=== PATIENT | male | born 1955 | race African-American/Black ===

== ENCOUNTER 2016-09-09 02:03 | Inpatient (IN) | payer BC, MEDICARE ==
--- NOTE | ~2016-09-09 | CR63 ---
[facility] A Service of [facility] RADIOLOGY TEXT RESULTS PATIENT: KURT ALMENDAREZ LOCATION: [facility] [id number] : [birth year] UNIT #: [id number] AGE: [address]: Fallon Cardenas MD SEX: M ORDER DR: [id number] [facility] [address] [place], [place] [address] [id number] MR#: [id number] #: [id number] NAME: KURT ALMENDAREZ : 1955 SEX: M STUDY DATE/TIME: 09/10/2016 8:33 UNIT: [facility] ROOM: [facility] STUDY DESCRIPTION: CR Chest 2 View Attending Physician: Fallon Cardenas M.D. Ordering Physician: Isabel Wells M.D. Primary Care Physician: Primary Care Physician No MEDICAL IMAGING REPORT This report is preliminary unless electronic signature is present EXAM PA and lateral chest 09/10/2016 HISTORY Wheezing, shortness of breath for 5 days. COMPARISON 09/09/2016. FINDINGS PA and lateral views of the chest are obtained. Cardiac size in the patient is stable. The exam again shows some increased density in the pleura at the left base. This likely represents fluid within the fissure. Lungs otherwise are clear. CONCLUSION Continued evidence of left pleural fluid. This appears at least partially loculated within the fissure. Chest is unchanged from the prior study of 09/09. Dictated by... Hari Jauregui M.D. THIS IS AN ELECTRONICALLY VERIFIED REPORT Hari Jauregui M.D. at 09/11/2016 7:27 AM EDGAR/manohar TD: 09/10/2016 13:15 JOB #: [id number] MEDICAL IMAGING REPORT Page 1 of 1 COPY
--- NOTE | ~2016-09-09 | HP ---
Unit #: [id number] #: [id number] Patient: KURT ALMENDAREZ [id number] [address] [place], [place] [address] [id number] I MR#: [id number] NAME: KURT ALMENDAREZ ROOM: [id number] Age: 61 Sex: M Admission Date: 09/09/2016 : 1955 Attending Physician: Fallon Cardenas M.D. Primary Care Physician: No Primary Care Physician HISTORY AND PHYSICAL CHIEF COMPLAINT Cough and shortness of breath x4 days. HISTORY OF PRESENT ILLNESS The patient is a pleasant 61-year-old -[place] male with hypertension, ESRD on dialysis, HIV, who basically has been having some cough and shortness of breath for the past four days. He was told he had some fluid in his lungs at dialysis. He presented for evaluation in the emergency room and diagnosed with pneumonia. He is currently being treated for community-acquired pneumonia. REVIEW OF SYSTEMS Complete ten point review of systems has been done and pertinent positives noted. PAST MEDICAL HISTORY As stated above: 1. Hypertension. 2. HIV. 3. ESRD with dialysis. PAST SURGICAL HISTORY AV fistula placement. MEDICATIONS Medications include: 1. Abacavir sulfate 300 mg p.o. twice daily. 2. Tenormin 12.5 mg p.o. daily. 3. Lipitor 10 mg p.o. daily. 4. Capsaicin topically. 5. Cholecalciferol D 2000 units p.o. daily. 6. Sensipar 30 mg p.o. daily. 7. Efavirenz 600 mg at bedtime on empty stomach. 8. Hydroxyzine 10 mg p.o. at bedtime. 9. Lamivudine 50 mg p.o. daily. 10. Lidocaine/prilocaine cream applied topically to affected area. 11. Claritin 10 mg p.o. every other day. 12. Multivitamin topically p.o. daily. 13. Renvela 800 mg p.o. three times a day with meals. 14. Sodium bicarb 1300 mg p.o. twice daily. ALLERGIES No known drug allergies. Unit #: [id number] #: [id number] Patient: KURT ALMENDAREZ FAMILY HISTORY Significant for mother and brother with coronary artery disease and mom, grandmother and brother also having end stage renal disease. SOCIAL HISTORY The patient is retired from the [employer]. Denies any alcohol use. Quit smoking about 15 years ago. PHYSICAL EXAMINATION GENERAL APPEARANCE: He was comfortable, not in distress. VITAL SIGNS: Blood pressure was elevated today at 176/84, pulse 96, respiratory rate 18, temperature 98.1, saturating 99% on room air. CHEST: Reduced breath sounds in the lung bases posteriorly. CARDIOVASCULAR SYSTEM: First and second heart sounds only. ABDOMEN: Full. Moved with respiration. Soft, nontender, nondistended. EXTREMITIES: Bilateral lower extremity edema. SKIN: Warm and dry with no rashes. LYMPHATIC SYSTEM: No peripheral lymphadenopathy that I could appreciate. DIAGNOSTIC STUDIES IMAGING: Chest x-ray showed left base infiltrate/atelectasis. LABORATORY: He had chemistries which showed glucose of 113, BUN and creatinine 37 and 8.0, sodium and potassium 137 and 3.5, chloride and bicarbonate 100 and then 27 respectively. She had a CBC - WBC 7.5, hemoglobin and hematocrit 10.6 and 33.0, with a platelet count of 262. CARDIOVASCULAR: EKG - normal sinus rhythm, possible left atrial enlargement. ASSESSMENT AND PLAN 1. Shortness of breath, community-acquired pneumonia versus chronic obstructive pulmonary disease: He was started on doxycycline 100 mg p.o. in the ER, currently on Rocephin and Zithromax per protocol. He will get a dose of steroids, Solu-Medrol, 125 mg x1. Will put him on Duo-Nebs, get a CBC and CMP in the morning. 2. End stage renal disease: Consult Dr. Don. 3. HIV: Continue HIV medications. 4. DVT prophylaxis: Put him on SCDs while he is in bed. 5. GI prophylaxis: Put him on Protonix 40 mg p.o. daily. 6. Blood pressure is elevated at this time: Will need to put him on some hydralazine 10 mg IV q.6 p.r.n. Would also add hydralazine 25 mg p.o. t.i.d. to antihypertensive regimen. Dictated by Olimpia Infante TD: 09/09/2016 12:08 JOB #: [id number] Unit #: [id number] #: [id number] Patient: ERICKSON,KURT HISTORY AND PHYSICAL Page 1 of 1 X Isabel Wells MD HISTORY AND PHYSICAL
--- NOTE | ~2016-09-09 | CT57 ---
[facility] A Service of [facility] RADIOLOGY TEXT RESULTS PATIENT: KURT ALMENDAREZ LOCATION: [place] [address] : [birth year] UNIT #: [id number] AGE: [address]: Brandon Nagel MD SEX: M ORDER DR: [id number] [facility] [address] [place], [place] [address] [id number] I MR#: [id number] Acc #: [id number] NAME: KURT ALMENDAREZ : 1955 SEX: M STUDY DATE/TIME: 09/10/2016 17:46 UNIT: [facility] ROOM: [facility] STUDY DESCRIPTION: CT Chest Wo Cont Attending Physician: Fallon Cardenas M.D. Ordering Physician: Physician Non-Staff Primary Care Physician: No Primary Care Physician MEDICAL IMAGING REPORT This report is preliminary unless electronic signature is present EXAM CT of the chest without contrast INDICATIONS Shortness of breath and wheezing since September 05. History of dialysis. TECHNIQUE This CT exam was performed with one or more of the following radiation dose reduction techniques: automatic exposure control, adjustment of mA and/or kV according to patient size, and iterative reconstruction. CT of the chest was performed without contrast. Coronal and sagittal reformatted images were obtained. COMPARISON STUDIES No comparisons are available. FINDINGS There is bilateral interstitial thickening and bilateral airspace and ground-glass opacities. Small bilateral pleural effusions right greater than left. Overall findings are most suggestive of pulmonary edema. Trace pericardial fluid or thickening. Tiny thyroid nodule on the right. No suspicious lymphadenopathy. Gynecomastia. Limited imaging of the upper abdomen demonstrates changes of polycystic kidney disease. Cholelithiasis. Bone windows are unremarkable. IMPRESSION 1. Small bilateral pleural effusions with bilateral interstitial opacities in bilateral ground-glass airspace opacities most suggestive of pulmonary edema. 2. Findings consistent with polycystic kidney disease [facility] A Service [facility] RADIOLOGY TEXT RESULTS PATIENT: KURT ALMENDAREZ LOCATION: [facility]12-28 : [birth year] UNIT #: [id number] AGE: [address]: Brandon Nagel MD SEX: M ORDER DR: Dictated by... Angel Echavarria M.D. THIS IS AN ELECTRONICALLY VERIFIED REPORT Angel Echavarria M.D. at 09/12/2016 7:25 AM MARYLOU/pratima TD: 09/10/2016 23:50 JOB #: [id number] MEDICAL IMAGING REPORT Page 1 of 1 COPY
--- NOTE | ~2016-09-09 | CO ---
Unit #: [id number] #: [id number] Patient: KURT ALMENDAREZ [id number] [place] [address] [place], [place] [address] [id number] I MR#: [id number] NAME: KURT ALMENDAREZ ROOM: [facility] Age: 61 Sex: M Admission Date: 09/09/2016 : 1955 Attending Physician: Brandon Nagel M.D. Primary Care Physician: Primary Care Physician No Consultation Date: 09/10/2016 CONSULTATION REPORT HISTORY OF PRESENT ILLNESS Mr. Almendarez is a 61-year-old gentleman we were asked to see for management of his end-stage renal disease. He typically gets his care at the [facility]. The patient reports he was in his usual state of health until approximately Saturday when he came to dialysis and was found to have wheezing at the time of his initial assessment. By the end of dialysis treatment, his wheezing had resolved, and he felt well. He reports on Saturday he again presented with and had similar findings, which again resolved by the end of dialysis. On Saturday night, he began to experience significant orthopnea without fevers, chills, sputum production, etc. He did have a very light cough. With his increasing shortness of breath, he presented to the emergency room for further evaluation and has now been admitted for pneumonia. Currently, he reports that he feels much better. He is not currently short of breath, but he is sitting up. PAST MEDICAL HISTORY Significant for endstage renal disease, which he attributes to hereditary causes and possibly HIV medications for which he has been undergoing dialysis treatment for approximately 3 years. He also has a history of HIV, hypertension, and hypercholesterolemia. PAST SURGICAL HISTORY Significant for AV fistula replacements and several tunneled catheter placements. MEDICATIONS At the time of admission include abacavir, Tenormin, Lipitor, capsaicin, cholecalciferol, Sensipar, efavirenz, hydroxyzine, lamivudine, lidocaine, Claritin, a multivitamin, Renvela 800 mg and sodium bicarbonate. ALLERGIES None known. REVIEW OF SYSTEMS A 10-point review of systems was negative except for that described as above. Specifically, he denies chest pain, palpitations, history of asthma or COPD. PHYSICAL EXAMINATION VITAL SIGNS: He is afebrile with a temperature of 98.2, blood pressure 166/93, pulse of 100, respiratory rate of 18, O2 saturation is 94% on nasal cannula. HEENT: Head is normocephalic. Pupils are equal and reactive. Sclerae Unit #: [id number] #: [id number] Patient: KURT ALMENDAREZ anicteric. Throat clear. NECK: Supple without adenopathy. There was no jugular venous distention. LUNGS: Clear to auscultation without rales, rhonchi or wheezing. HEART: Had a regular rate with normal S1 and S2. No murmurs or gallops were noted. ABDOMEN: Soft and nontender. No masses or organomegaly were noted. No tenderness was elicited. GENITAL/RECTAL: Deferred. EXTREMITIES: Showed no lower extremity edema and no presacral edema. He does have a dialysis fistula in his right upper arm, which appears well used, but stable condition. DIAGNOSTIC STUDIES IMAGING STUDIES: His chest x-ray was noted to show some degree of cardiomegaly with a left base infiltrate. LABORATORY RESULTS: Chemistries were notable for an elevated creatinine of 9.6 with a BUN of 63, but had a normal potassium at 4.2 and a bicarb at 23. His albumin was 3.3. His hemoglobin was 9.7 with a white count of 9.3 and a platelet count of 262. Cultures are pending at this point in time. IMPRESSION 1. Pneumonia. He is currently on treatment with Rocephin and Zithromax. His symptoms appeared to be abating and he looks well at this time. Continue treatment per primary care. 2. Endstage renal disease. The patient does not appear to have peripheral edema and I am unsure of the contribution of potential excess fluid on his chest x-ray. We will proceed with dialysis today and pull him to his usual dry weight and reassess afterwards. 3. Hypertension. His blood pressure is up and ideally controlled during this hospital stay; however, recent blood pressure changes by his primary care physician are noted. 4. History of HIV and the patient reports that HIV has been well controlled and he has not had significant complications in terms of immunosuppression or infections. Dictated by... Raul David M.D. KATY/lexus TD: 09/11/2016 08:00 JOB #: [id number] CONSULTATION REPORT Page 1 of 1 X Raul David Jr, MD CONSULTATION REPORT
--- NOTE | ~2016-09-09 | DS ---
Unit #: [id number] #: [id number] Patient: KURT ALMENDAREZ [id number] [place] [address] [facility]. [place], [place] [address] [id number] I MR#: [id number] NAME: KURT ALMENDAREZ ROOM: [facility] Age: 61 Sex: M Admission Date: 09/09/2016 : 1955 Discharge Date: 09/12/2016 Attending Physician: Brandon Nagel M.D. Primary Care Physician: No Primary Care Physician DISCHARGE SUMMARY REASON FOR ADMISSION Dyspnea. HISTORY OF PRESENT ILLNESS A 61-year-old -Malag[place] male, very pleasant, with a prior history of hypertension, end-stage renal disease on hemodialysis, HIV who developed acute onset of shortness of breath as well as dyspnea. He was previously told that he had increased fluid and presented to his dialysis center. During dialysis, he states that he had several liters of fluid which were removed. He went home. Unfortunately, he did not show any improvement. He presented to [facility] ER for further evaluation. Initial chest x-ray findings were consistent with fluid overload versus pneumonia. He was subsequently admitted and treated as community-acquired pneumonia. In regard to his prior history of end-stage renal disease, consultation was placed to [facility]. The patient did undergo routine dialysis while he was here. In consideration of initial abnormal chest x-ray and findings consistent with edema versus acute infiltrate, patient underwent CT chest without contrast which did show small bilateral effusions with bilateral interstitial opacities consistent with pulmonary edema. There was also polycystic kidney disease which was noted but no acute infiltrate was noted. His white count is now currently at 10.2, hemoglobin 9.9. BMP shows a creatinine level of 8.6 and GFR at 7. His cardiac enzymes have been cycled, otherwise negative. Blood cultures have been negative, as mentioned above. At this point in time, patient appears stable for discharge. He will have hemodialysis later this afternoon. Also noted, patient did undergo a 2D echocardiogram this hospital admission to ascertain EF as well as cardiac function. Patient's ejection fraction was noted to be 55%. Overall, left ventricular function was deemed normal. At this point in time, patient is clinically stable for discharge. He will follow with his PCP in 7-10 days. He will follow with [place] Unit #: [id number] #: [id number] Patient: KURT ALMENDAREZ Nephrology Services at time of discharge as well. FINAL DISCHARGE DIAGNOSES 1. Acute hypoxic respiratory failure seen on admission, now resolved. 2. Fluid overload/pulmonary edema. 3. End-stage renal disease on hemodialysis. 4. Anemia, likely of chronic disease, baseline between 9-10. 5. Human immunodeficiency virus. 6. Chronic obstructive pulmonary disease. 7. Remote history of tobacco abuse. DISCHARGE MEDICATIONS 1. Sodium bicarbonate 1300 mg p.o. b.i.d. 2. Claritin 10 mg p.o. every other day. 3. Lidocaine/Emla topical daily. 4. Ziagen 300 mg p.o. b.i.d. 5. Sustiva 600 mg p.o. nightly. 6. Atarax 10 mg p.o. nightly p.r.n. anxiety. 7. Tenormin 12.5 mg p.o. daily. 8. Lipitor 10 mg p.o. nightly. 9. Sensipar 30 mg p.o. daily. 10. Renvela 800 mg p.o. t.i.d. with meals. 11. Vitamin D 2000 units p.o. daily. 12. Lamivudine 50 mg p.o. daily. 13. Multivitamin daily. 14. Nephrocaps daily. 15. Hydralazine 50 mg p.o. b.i.d. DISCHARGE CONDITION Stable. DISCHARGE DISPOSITION Home. Dictated by... Olimpia Yu/madhuri TD: 09/12/2016 09:42 JOB #: [id number] DISCHARGE SUMMARY Page 1 of 1 X Brandon Nagel MD X DISCHARGE SUMMARY
--- NOTE | ~2016-09-09 | EKG ---
PATIENT: KURT ALMENDAREZ UNIT #: [id number] Ventricular Rate: 95 BPM Atrial Rate: 95 BPM P-R Interval: 136 ms QRS Duration: 74 ms Q-T Interval: 368 ms QTC Calculation(Bezet): 462 ms P [place]: 40 degrees Calculated R [place]: 21 degrees Calculated T [place]: 24 degrees Diagnosis Line: Normal sinus rhythm Diagnosis Line: Possible Left atrial enlargement Diagnosis Line: Left ventricular hypertrophy Diagnosis Line: Abnormal ECG Diagnosis Line: No previous ECGs available Diagnosis Line: Confirmed by ANAND PETIT MD ([id number]) on Diagnosis Line: 09/10/2016 8:36:44 AM INTERPRETING MD: DAMASO GALLARDO
--- NOTE | ~2016-09-09 | CR63 ---
[facility] A Service of [facility] RADIOLOGY TEXT RESULTS PATIENT: KURT ALMENDAREZ LOCATION: [facility] 559-01 : [birth year] UNIT #: [id number] AGE: [address]: Fallon Cardenas MD SEX: M ORDER DR: [id number] [facility] [address] [place], [place] [address] [id number] I MR#: [id number] Acc #: [id number] NAME: KURT AMLENDAREZ : 1955 SEX: M STUDY DATE/TIME: 09/09/2016 03:08 UNIT: [facility] ROOM: [facility] STUDY DESCRIPTION: CR Chest 2 View Attending Physician: Fallon Cardensa M.D. Ordering Physician: Adrian Martin M.D. Primary Care Physician: Primary Care Physician No MEDICAL IMAGING REPORT This report is preliminary unless electronic signature is present EXAM Chest x-ray, 09/09 at 03:08 INDICATIONS Shortness of air, wheezing and weakness that started today. History of HIV. FINDINGS PA and lateral views of the chest were obtained. No comparisons. The heart is enlarged. There is some mild infiltrate or atelectasis at the left base and there is some left pleural thickening, which could reflect some loculated pleural fluid. The right lung is clear. There is no pneumothorax. There is a vascular stent in the left upper extremity. IMPRESSION Cardiomegaly with some mild left base infiltrate or atelectasis. There is also some pleural thickening at the left base, which could reflect loculated pleural fluid but is nonspecific in the absence of comparisons. Dictated by... Sancho Lundberg Jr., M.D. THIS IS AN ELECTRONICALLY VERIFIED REPORT Sancho Lundberg Jr., M.D. at 09/09/2016 9:24 PM DOM/naz TD: 09/09/2016 20:47 JOB #: [id number] MEDICAL IMAGING REPORT Page 1 of 1 COPY
[2016-09-09 03:10] LABS: BASOPHIL# 0.1 X10e3 (0-0.3); BASOPHIL% 0.9 % (0-2.5); DIFF IND NO; EOSINOPHIL# 0.2 X10e3 (0-0.7); EOSINOPHIL% 2.1 % (0.0-7.0); HEMOGLOBIN 10.6 gm/dL (13.0-16.0); LYMPHOCYTE# 1.8 X10e3 (1.0-3.5); LYMPHOCYTE% 24.1 % (17.0-45.0); MEAN CELL VOLUME 102.4 FL (83-96); MEAN CORPUSCULAR HEMOGLOBIN 32.9 PG (28-34); MEAN CORPUSCULAR HGB CONC 32.1 g/dL (30-36); MEAN PLATELET VOLUME 8.1 FL (6.5-11.5); MONOCYTE# 0.9 X10e3 (0-1.0); MONOCYTE% 12.3 % (3.0-12.0); NEUTROPHIL# 4.5 X10e3 (1.5-7.1); NEUTROPHIL% 60.6 % (40-75); PLATELET COUNT 262 X10e3 (140-420); RED BLOOD COUNT 3.22 X10e (3.90-5.60); RED CELL DISTRIBUTION WIDTH 14.2 % (11.0-15.5); WHITE BLOOD COUNT 7.5 X10e3 (4.0-10.5)
[2016-09-09 03:11] LABS: POC - CKMB <1.0 ng/mL (0.0-7.9); POC - TROPONIN <0.05 ng/mL (<=0.05)
[2016-09-09 03:37] LABS: ALBUMIN SERUM 3.3 g/dL (3.5-5.0); BILIRUBIN, DIRECT 0.1 mg/dL (0.0-0.2); BILIRUBIN,INDIRECT 0.2 mg/dL (0.0-0.9); BILIRUBIN,TOTAL 0.3 mg/dL (0.2-2.0); BUN/CREATININE RATIO 4.62; CALCIUM SERUM 8.1 mg/dL (8.4-10.2); GLOM FILT RATE Estimated 7.6 mL/min (>60); POTASSIUM 3.5 mmol/L (3.5-5.1); PROTEIN TOTAL SERUM 7.9 g/dL (6.0-8.3)
[2016-09-09] MEDS ORDERED: PATIENT'S PHARMACY (09:05)
[2016-09-09] MEDS ORDERED: ZIAGEN300 M1 PO (09:06)
[2016-09-09] MEDS ORDERED: ATENOLOL PO (09:06)
[2016-09-09] MEDS ORDERED: ATORVASTATIN CA10 MG PO (09:07)
[2016-09-09] MEDS ORDERED: ARTHRITIS PAI42.5 GM TOP (09:09)
[2016-09-09] MEDS ORDERED: D-20002000 UNIT PO (09:10)
[2016-09-09] MEDS ORDERED: SENSIPAR30 MG PO (09:10)
[2016-09-09] MEDS ORDERED: HYDROXYZINE HCL10 MG PO (09:11)
[2016-09-09] MEDS ORDERED: SUSTIVA PO (09:11)
[2016-09-09] MEDS ORDERED: LAMIVUDINE PO (09:13)
[2016-09-09] MEDS ORDERED: LIDOCAINE-PRILO30 G1 TOP (09:14)
[2016-09-09] MEDS ORDERED: CLARITIN10 M3 PO (09:15)
[2016-09-09] MEDS ORDERED: MULTIVIT PO (09:20)
[2016-09-09] MEDS ORDERED: DIALYSIS PO (09:20)
[2016-09-09] MEDS ORDERED: [UNRECOGNIZED DRUG - OTHER] PO (09:20)
[2016-09-09] MEDS ORDERED: RENVELA800 MG PO (09:21)
[2016-09-09] MEDS ORDERED: SOD BICARBONATE PO (09:22)
[2016-09-09] MEDS ORDERED: JOCK ITCH15 G1 TOP (09:22)
[2016-09-10 06:24] LABS: BASOPHIL% 0.3 % (0-2.5); HEMATOCRIT 29.1 % (38.0-50.0); HEMOGLOBIN 9.7 gm/dL (13.0-16.0); LYMPHOCYTE# 0.7 X10e3 (1.0-3.5); LYMPHOCYTE% 7.6 % (17.0-45.0); MEAN CELL VOLUME 100.7 FL (83-96); MEAN CORPUSCULAR HEMOGLOBIN 33.5 PG (28-34); MEAN CORPUSCULAR HGB CONC 33.3 g/dL (30-36); MONOCYTE# 0.4 X10e3 (0-1.0); MONOCYTE% 4.2 % (3.0-12.0); NEUTROPHIL# 8.1 X10e3 (1.5-7.1); NEUTROPHIL% 87.9 % (40-75); PLATELET COUNT 262 X10e3 (140-420); RED BLOOD COUNT 2.89 X10e (3.90-5.60); RED CELL DISTRIBUTION WIDTH 14.3 % (11.0-15.5); WHITE BLOOD COUNT 9.3 X10e3 (4.0-10.5)
[2016-09-10 06:42] LABS: DIFF IND NO
[2016-09-10 06:47] LABS: BUN/CREATININE RATIO 6.56; CALCIUM SERUM 8.4 mg/dL (8.4-10.2); CREATININE SERUM 9.6 mg/dL (0.6-1.4); GLOM FILT RATE Estimated 6.1 mL/min (>60); POTASSIUM 4.2 mmol/L (3.5-5.1)
[2016-09-11 07:01] LABS: HEMATOCRIT 28.4 % (38.0-50.0); HEMOGLOBIN 9.2 gm/dL (13.0-16.0); MEAN CELL VOLUME 102.2 FL (83-96); MEAN CORPUSCULAR HGB CONC 32.3 g/dL (30-36); MEAN PLATELET VOLUME 8.4 FL (6.5-11.5); RED BLOOD COUNT 2.78 X10e (3.90-5.60); RED CELL DISTRIBUTION WIDTH 14.4 % (11.0-15.5)
[2016-09-11 07:41] LABS: BUN/CREATININE RATIO 6.03; CALCIUM SERUM 8.2 mg/dL (8.4-10.2); GLOM FILT RATE Estimated 10.2 mL/min (>60); MAGNESIUM 2.1 mg/dL (1.6-3.0); POTASSIUM 3.9 mmol/L (3.5-5.1)
[2016-09-11 07:46] LABS: CREATININE SERUM 6.3 mg/dL (0.6-1.4)
[2016-09-12 07:52] LABS: HEMATOCRIT 30.3 % (38.0-50.0); HEMOGLOBIN 9.9 gm/dL (13.0-16.0); MEAN CELL VOLUME 102.1 FL (83-96); MEAN CORPUSCULAR HEMOGLOBIN 33.2 PG (28-34); MEAN CORPUSCULAR HGB CONC 32.6 g/dL (30-36); MEAN PLATELET VOLUME 8.5 FL (6.5-11.5); RED BLOOD COUNT 2.97 X10e (3.90-5.60); RED CELL DISTRIBUTION WIDTH 14.5 % (11.0-15.5); WHITE BLOOD COUNT 10.2 X10e3 (4.0-10.5)
[2016-09-12 09:11] LABS: BUN/CREATININE RATIO 7.67; CALCIUM SERUM 7.8 mg/dL (8.4-10.2); CREATININE SERUM 8.6 mg/dL (0.6-1.4)
[2016-09-12] MEDS ORDERED: HYDRALAZINE HCL50 MG PO (15:38)
[2016-09-12] MEDS ORDERED: NEPHROCAPS QT1 EACH PO (15:39)
[2016-09-12] MEDS ORDERED: ALBUTEROL MININEB INH (15:44)
[2016-09-14 01:02] LABS: HA AB IGM (HEPPAN) Nonreactive (()); HB CORE AB IGM (HEPPAN) Nonreactive (Nonreactive); HB S AG (HEPPAN) Nonreactive (Nonreactive); HEP C AB (HEPPAN) Nonreactive (Nonreactive); HEP C AB SIGNAL TO CUTOFF 0.05 ratio (<1.00)
== END 2016-09-12 19:00 | disposition home or self-care (01) | DRG 640 ==
LOC: CED 02:03 → CEDOF 05:31 → C5B 05:31 → CEDOF 05:39 → CED 05:39 → C5B 16:40
PROVIDERS: Emergency Medicine; Family Medicine; Internal Medicine Nephrology; Physician Assistant Medical
PROC: B246YZZ Ultrasonography of Right and Left Heart using Other Contrast (ICD-10-PCS; principal; 2016-09-11)
DX: E87.70 Fluid overload, unspecified (principal); J96.01 Acute respiratory failure with hypoxia; N18.6 End stage renal disease; I12.0 Hypertensive chronic kidney disease with stage 5 chronic kidney disease or end stage renal disease; Q61.3 Polycystic kidney, unspecified; J81.1 Chronic pulmonary edema; J44.1 Chronic obstructive pulmonary disease with (acute) exacerbation; Z21 Asymptomatic human immunodeficiency virus [HIV] infection status; Z82.49 Family history of ischemic heart disease and other diseases of the circulatory system; Z84.1 Family history of disorders of kidney and ureter; E78.00 Pure hypercholesterolemia, unspecified; D63.1 Anemia in chronic kidney disease
CPT/HCPCS: 36415; 71020; 71250; 80048; 80074; 80076; 82308; 82550; 82553; 82947; 83735; 83880; 84484; 85025; 85027; 86705; 86707; 87040; 87340; 87350; 93005; 93306; 94640; 94760; 96374; 99291; C9113; J0360; J0456; J0696; J2405; J2920; J2930

== ENCOUNTER 2016-10-15 22:01 | Inpatient (IN) | payer BC, MEDICARE ==
--- NOTE | ~2016-10-15 | DS ---
Unit #: [id number] #: [id number] Patient: KURT ALMENDAREZ [id number] [place], [place] [address] [id number] I MR#: [id number] NAME: KURT ALMENDAREZ ROOM: 313 Age: 61 Sex: M Admission Date: 10/16/2016 : 1955 Discharge Date: 10/18/2016 Attending Physician: Brandon Nagel M.D. Primary Care Physician: No Primary Care Physician DISCHARGE SUMMARY REASON FOR ADMISSION Dyspnea/abdominal pain. HISTORY OF PRESENT ILLNESS/HOSPITAL COURSE Please refer to H and P for complete details of initial part of hospital stay and/or evaluation. Initial chest x-ray raised possibility of mild CHF versus volume overload. The patient underwent CT abdomen and pelvis on 10/16/2016 secondary to aforementioned abdominal pain. There was question of infiltrates versus small bilateral pleural effusions. There were also noted to be large bilateral polycystic kidneys, which were nonobstructive. There was questionable left-sided pyeloureteral nephritis. Correlation was recommended. Cholelithiasis was also commented on, as well. Blood cultures ascertained this hospital admission were, otherwise, negative and unremarkable. The patient did undergo an ultrasound of his gallbladder on 10/16/2016 secondary to cholelithiasis, which was seen. It did show uncomplicated cholelithiasis with no acute process. In regard to his HIV status, as well as antibiotic management, ID service was consulted. They continued to follow the patient through his hospital course. Today, at time discharge the patient will be discharged home after ID has discontinued vancomycin, Zosyn and Bactrim. Pulmonary service, including Dr. Leung and associated, was also consulted secondary to dyspnea. No acute intervention was performed while here. In regard to the patient's history of endstage renal disease and being on dialysis, Dr. Walker and associates were consulted. He underwent routine dialysis. Repeat chest x-rays did show clearing, and the patient is clinically improved. At this point time the patient appears clinically stable for discharge. FINAL DISCHARGE DIAGNOSES 1. Dyspnea, likely secondary to volume overload, now resolved. 2. Bilateral pleural effusion versus infiltrate, now improved. 3. Human immunodeficiency virus positive. 4. Endstage renal disease. 5. Abdominal pain, now resolved. 6. Hyperlipidemia. 7. Hypertension. Unit #: [id number] #: [id number] Patient: KURT ALMENDAREZ FINAL DISCHARGE MEDICATIONS 1. Albuterol nebulizer solution q.6 p.r.n. 2. Sodium bicarbonate 1,300 mg p.o. b.i.d. 3. Claritin 10 mg p.o. daily. 4. Bentyl 10 mg p.o. q.6 p.r.n. 5. EMLA cream topical as directed. 6. Edurant 25 mg p.o. daily. 7. Norvir 100 mg p.o. daily. 8. Tivicay 50 mg p.o. daily. 9. Prezista 800 mg p.o. daily. 10. Tenormin 25 mg p.o. b.i.d. 11. Procrit 10,000 unit injection Saturday, , Saturday. 12. Lipitor 10 mg p.o. q.h.s. 13. Hydralazine 50 mg p.o. b.i.d. 14. Sensipar 30 mg p.o. daily. 15. Florastor b.i.d. 16. Multivitamin daily. 17. Motrin 400 mg p.o. q.6 p.r.n. 18. Renvela 800 mg p.o. t.i.d. with meals. 19. Vitamin D 2000 units p.o. daily. DISCHARGE CONDITION Stable. DISCHARGE DISPOSITION Home. Dictated by... Olimpia Yu/jhonatan TD: 10/19/2016 08:18 JOB #: [id number] DISCHARGE SUMMARY Page 1 of 1 X Brandon Nagel MD X DISCHARGE SUMMARY
--- NOTE | ~2016-10-15 | EKG ---
PATIENT: KURT ALMENDAREZ UNIT #: [id number] Ventricular Rate: 103 BPM Atrial Rate: 103 BPM P-R Interval: 134 ms QRS Duration: 78 ms Q-T Interval: 354 ms QTC Calculation(Bezet): 463 ms P [place]: 51 degrees Calculated R [place]: 34 degrees Calculated T [place]: 32 degrees Diagnosis Line: Sinus tachycardia Diagnosis Line: Possible Left atrial enlargement Diagnosis Line: Borderline ECG Diagnosis Line: When compared with ECG of 09-SEP-2016 03:21, Diagnosis Line: No significant change was found Diagnosis Line: Confirmed by DIONE ESTRADA MD ([id number]) on Diagnosis Line: 10/16/2016 10:38:46 PM INTERPRETING MD: MAXIME
--- NOTE | ~2016-10-15 | HP ---
Unit #: [id number] #: [id number] Patient: KURT ALMENDAREZ [id number] [address] [place], [place] [address] [id number] I MR#: [id number] NAME: KURT ALMENDAREZ ROOM: 96402 Age: 61 Sex: M Admission Date: 10/16/2016 : 1955 Attending Physician: Donna Lowery M.D. Primary Care Physician: No Primary Care Physician HISTORY AND PHYSICAL CHIEF COMPLAINT Dyspnea, abdominal pain. HISTORY This pleasant 61-year-old male with end stage renal failure secondary to polycystic kidney disease, hypertension, HIV positive, is admitted for dyspnea and abdominal pain. The patient was well until yesterday. His HIV medicines were changed due to severe muscle cramps. He took his first dose of his new medications yesterday and experienced diarrhea. Went to dialysis yesterday and did well. Took his new HIV medicines around 5:00 p.m. and then became extremely short of breath with wheezing. The shortness of breath was worse when supine and with exertion. No chest pain with the above. Has experienced a nonproductive cough for the past one to two days. Also is complaining of mid abdominal pain. He presented to this emergency department late last evening with a temperature of 99.4. In the course of his evaluation on chest x-ray, suspicious for mild CHF. A CT scan was performed of the abdomen showing small bilateral pleural effusions with bilateral infiltrates, which could be pneumonia versus congestive heart failure. Polycystic kidney disease was noted with stranding on the left suspicious for pyelonephritis. Gallstones were also noted. However, on examination the patient is tender in the right upper quadrant. Has no CVA tenderness on exam. Rarely makes urine. He had been admitted to this facility in August for fluid overload. So in our ER early this morning the patient was give Zosyn, vancomycin and tobramycin, given that he was recently admitted to a hospital. On examination he does have mild bronchospasm, currently is feeling better with oxygen applied and with albuterol mini-neb. PAST MEDICAL HISTORY 1. HIV positive for 21 years. The patient's HIV medicines were recently changed due to severe muscle cramps. He states that his viral load was undetectable in the past and does not know his CD4 count. He was followed by the [facility]. 2. Admission 09/09/2016 through 09/12/2016 which was thought to be community acquired pneumonia, but it was decided patient just had fluid overload. An echocardiogram showed an ejection fraction of 55%. 3. Hypertension. 4. Hyperlipidemia. 5. Polycystic kidney disease now with end stage renal failure on hemodialysis Saturday, Saturday, and Fridays followed by [facility]. Last dialysis was yesterday. Patient has a working right AV shunt. Unit #: [id number] #: [id number] Patient: KURT ALMENDAREZ ALLERGIES No known drug allergies. CURRENT HOME MEDICATIONS Albuterol inhaler p.r.n.; atenolol 25 mg b.i.d.; Lipitor 10 mg daily; capsaicin t.i.d.; vitamin D 2,000 units daily; Sensipar 30 mg daily; darunavir, which is new medication 800 mg daily; Bentyl 10 mg q.i.d. p.r.n.; dolutegravir 50 mg daily; hydralazine 50 mg b.i.d.; Atarax 10 mg q.h.s. p.r.n.; ibuprofen p.r.n. for before dialysis; lidocaine patch as directed; Claritin 10 mg every other day; multivitamin daily; rilpivirine, which is a new medication, 25 mg daily; ritonavir also a new medication, 100 mg daily with food; Renvela 800 mg t.i.d. with meals; sodium bicarb 650 mg 2 tablets b.i.d.; and terbinafine 1% cream b.i.d. FAMILY HISTORY CAD and renal failure. SOCIAL HISTORY The patient is retired from the army. Quit smoking 15 years ago. Does not use alcohol. REVIEW OF SYSTEMS Shortness of breath, abdominal pain, hyperlipidemia, hypertension, HIV, end stage renal failure, polycystic kidney disease, fistula placement. All other systems were reviewed and otherwise negative. PHYSICAL EXAMINATION GENERAL: Pleasant 61-year-old moderately obese male, currently is in no acute distress. VITAL SIGNS: Temperature 99.4, pulse 103, respirations 18, blood pressure 156/110, O2 saturation is 94% on room air. HEENT: Eyes - PERRLA, extraocular muscles are intact. Pharynx is benign. NECK: Supple without adenopathy or thyromegaly. CHEST: Chest reveals mild expiratory wheeze. CARDIAC: Normal S1 and S2 with a soft systolic murmur. ABDOMEN: Bowel sounds are present. Patient was tender in the right upper quadrant without rebound or guarding. No hepatosplenomegaly or masses. EXTREMITIES: Without clubbing, cyanosis or edema. Pedal pulses are present. NEUROLOGIC: Patient is awake, alert, and oriented. Cranial nerves are intact. Equal strength throughout. Of note, patient does have a right upper arm AV fistula with good thrill and good bruit. DIAGNOSTIC STUDIES ADMISSION LABS: Hematocrit is 29.6, which is stable. MCV 101.8, normal white count and platelet count. SMA 12 - BUN 29, creatinine 6.1, protein 8.4, alk phos 101, lactic acid normal. IMAGING STUDIES: Chest x-ray - stable cardiomegaly. Trace pleural effusions, mild edema. CT scan of the abdomen and pelvis show small bilateral pleural effusion, likely edema versus pneumonia with infiltrates. Bilateral polycystic kidneys with standing on the left concerning for possible left pyelo, also gallstones noted. ASSESSMENT Unit #: [id number] #: [id number] Patient: KURT ALMENDAREZ 1. New onset dyspnea worse with exertion and when supine after starting new HIV medications. Also notes a cough for the past two days and does have bronchospasm. Rule out pneumonia versus fluid overload, versus allergic reaction. 2. HIV x21 years. Patient recently started on new HIV medications due to muscle cramps. States that he has undetectable viral load. 3. End stage renal failure on hemodialysis, last dialysis was yesterday. 4. Polycystic kidney disease. 5. Right arm AV shunt or fistula. 6. Abdominal pain with right upper quadrant tenderness and gallstones noted on CT scan. Possible pyelonephritis on the left but patient is tender on the right, and has no CVA tenderness. 7. Hyperlipidemia. 8. Hypertension. PLANS 1. Obtain EKG and cardiac enzymes. 2. Vancomycin, Zosyn and Bactrim pending workup. 3. Gallbladder ultrasound. 4. Check procalcitonin level, urinalysis. Blood cultures are pending. 5. Check viral load and CD4 count. 6. Infectious disease and nephrology to see. 7. SCDs for DVT prophylaxis. 8. Albuterol mini-nebs. 9. Hold HIV medicines until seen by infectious disease in the morning. Dictated by Donna Lowery M.D. AML/ts TD: 10/16/2016 05:35 JOB #: [id number] CC: Miguel Angel Walker M.D. HISTORY AND PHYSICAL Page 1 of 1 X Donna Lowery MD HISTORY AND PHYSICAL
--- NOTE | ~2016-10-15 | CT4 ---
[facility] A Service of [facility] & [facility] RADIOLOGY TEXT RESULTS PATIENT: KURT ALMENDAREZ LOCATION: C3A 313-01 : 57 UNIT #: [id number] AGE: [address]: Brandon Nagel MD SEX: M ORDER DR: [id number] [facility] [address] [place], [place] [address] [id number] I MR#: [id number] Acc #: [id number] NAME: KURT ALMENDAREZ : 1955 SEX: M STUDY DATE/TIME: 10/16/2016 01:16 UNIT: C3A PCU ROOM: 313 STUDY DESCRIPTION: CT Abd and Pelv Wo Cont Attending Physician: Brandon Nagel M.D. Ordering Physician: Jennifer Daigle M.D. Primary Care Physician: Primary Care Physician No MEDICAL IMAGING REPORT This report is preliminary unless electronic signature is present EXAM CT abdomen and pelvis, 10/16 at 01:16 INDICATION Shortness of air, abdominal pain and cramping for 1 day. History of HIV and renal failure. TECHNIQUE Axial noncontrast images were obtained through the abdomen and pelvis. Multiplanar reformats were obtained. This CT exam was performed with one or more of the following radiation dose reduction techniques: automatic exposure control, adjustment of mA and/or kV according to patient size, and iterative reconstruction. COMPARISON No comparison. FINDINGS ABDOMEN: There are small bilateral pleural effusions. There are infiltrates in the bases which could reflect mild pneumonia or potentially some component of edema. The gallbladder contains stones but is otherwise normal. Bilateral enlarged polycystic kidneys are seen. No ureteral stones are seen and there is no hydronephrosis. Although there is some fat stranding around both kidneys and this can be seen as a normal finding. This is increased around the left kidney relative to the right. This could indicate pyelonephritis. Additionally, there is a thick-walled cystic lesion noted posterior in the left kidney measuring 4.3 cm. This is presumably a complicated cyst. It does not contain any gas bubbles to suggest an abscess. The fat stranding extends along the proximal to mid left ureter. Correlation with urinalysis results recommended. Remaining solid organs are within normal limits. Unopacified GI tract is grossly normal. [facility] A Service of [facility] & [facility] RADIOLOGY TEXT RESULTS PATIENT: KURT ALMENDAREZ LOCATION: C3A 313-01 : 57 UNIT #: [id number] AGE: [address]: Brandon Nagel MD SEX: M ORDER DR: PELVIS: No lower ureteral stones are seen. Urinary bladder is decompressed and not well evaluated. The unopacified GI tract, including the appendix, is within normal limits except for a few colonic diverticula. IMPRESSION 1. Small bilateral pleural effusions with bibasilar infiltrates. These probably reflect edema but pneumonia should be excluded clinically. 2. Large bilateral polycystic kidneys which are nonobstructed. There is asymmetric fat stranding on the left side that extends along the proximal half of the left ureter. This raises the possibility of left side pyeloureteral nephritis. Correlate with urinalysis results. 3. Thick-walled cyst in the left posterior kidney is probably a complex renal cyst. No gas bubbles are seen to suggest abscess at this time. 4. Cholelithiasis. 5. A few colonic diverticula are noted. The GI tract, including the appendix, is otherwise normal. Dictated by... Sancho Lundberg Jr., M.D. THIS IS AN ELECTRONICALLY VERIFIED REPORT Sancho Lundberg Jr., M.D. at 10/16/2016 9:22 PM DOM/renetta TD: 10/16/2016 12:06 JOB #: [id number] MEDICAL IMAGING REPORT Page 1 of 1 COPY
--- NOTE | ~2016-10-15 | US67 ---
[facility] A Service of [facility] RADIOLOGY TEXT RESULTS PATIENT: KURT ALMENDAREZ LOCATION: [facility] : [birth year] UNIT #: [id number] AGE: [address]: Brandon Nagel MD SEX: M ORDER DR: [id number] [place] [id number] [facility]. [place], [place] [address] [id number] I MR#: [id number] Acc #: [id number] NAME: KURT ALMENDAREZ : 1955 SEX: M STUDY DATE/TIME: 10/16/2016 8:05 UNIT: C3A PCU ROOM: [facility] STUDY DESCRIPTION: US Gallbladder Attending Physician: Brandon Nagel M.D. Ordering Physician: Donna Lowery M.D. Primary Care Physician: No Primary Care Physician MEDICAL IMAGING REPORT This report is preliminary unless electronic signature is present EXAM Right upper quadrant abdominal ultrasound. INDICATION Generalized abdominal pain for the past 2 years. PROCEDURE Vanessa-scale and Doppler imaging right upper quadrant of the abdomen. COMPARISON CT from 10/16/2016. FINDINGS Visualized portions of the pancreas are unremarkable. Small right pleural effusion. Liver measures 19.2 cm. There are several small stones in the gallbladder. No gallbladder wall thickening or pericholecystic fluid. Common duct measures 5 mm. Multiple cysts in the right kidney. Right kidney measures 15.8 cm. IMPRESSION 1. Uncomplicated cholelithiasis. 2. Innumerable right renal cysts in keeping with polycystic kidney disease. 3. Borderline hepatomegaly. Dictated by... Sage Barber M.D. THIS IS AN ELECTRONICALLY VERIFIED REPORT Sage Barber M.D. at 10/17/2016 2:02 PM EED/tmw [facility] A Service of [facility] RADIOLOGY TEXT RESULTS PATIENT: KURT ALMENDAREZ LOCATION: [facility] - : 57 UNIT #: [id number] AGE: [address]: Brandon Nagel MD SEX: M ORDER DR: TD: 10/16/2016 13:54 JOB #: [id number] MEDICAL IMAGING REPORT Page 1 of 1 COPY
--- NOTE | ~2016-10-15 | CO ---
Unit #: [id number] #: [id number] Patient: KURT ALMENDAREZ [id number] [address] [address] [id number] I MR#: [id number] NAME: KURT ALMENDAREZ ROOM: 313 Age: 61 Sex: M Admission Date: 10/16/2016 : 1955 Attending Physician: Brandon Nagel M.D. CONSULTATION REPORT HISTORY OF PRESENT ILLNESS Mr. Almendarez is a 61-year-old white male with a history of end-stage renal disease, on hemodialysis secondary to polycystic kidney disease, HIV positive, who presented to the hospital. He had been in his normal state of health until one day prior to admission. He took a new dose of medication for HIV and is experiencing diarrhea. He went to dialysis yesterday and did well. He took the medicine about 5:00 p.m. and became more short of breath and wheezy. It was worse supine with exertion. He had no chest pain. He had a nonproductive cough. Had some mild abdominal pain. Temperature 99.4 in the emergency room. Chest x-ray was suspicious for some CHF. CT scan of the abdomen revealed small bilateral pleural effusions with some increased lower lobe infiltrates. No significant abnormality was noted in the abdomen. He had some gallstones and some left kidney stranding round polycystic kidneys. He was admitted to the emergency room, and placed on Zosyn, vancomycin, and tobramycin. We were asked to see. He has no purulent sputum. He did admit to some shortness of breath. PAST MEDICAL HISTORY Significant for HIV positive x21 years, history of admission 09/09/2016 through 09/12/2016 for what was thought to be community-acquired pneumonia, but was felt actually to represent volume excess and fluid overload represent diastolic dysfunction. Has a history of hypertension; hyperlipidemia; polycystic kidney disease; end-stage renal disease, on hemodialysis. ALLERGIES Has no known allergies. HOME MEDICATIONS Albuterol, atenolol, Lipitor, capsaicin, vitamin D, Sensipar, darunavir, Bentyl, dolutegravir, hydralazine, Atarax, ibuprofen, lidocaine patch, Claritin, multivitamin, rilpivirine, ritonavir, Renvela, sodium bicarb, terbinafine cream. FAMILY HISTORY Coronary artery disease, renal failure. SOCIAL HISTORY Retired from [employer]. Quit smoking 15 years ago. Does not use alcohol. REVIEW OF SYSTEMS Positive for shortness of breath, abdominal discomfort, hyperlipidemia, hypertension, end-stage renal disease, polycystic kidney disease, fistula Unit #: [id number] #: [id number] Patient: KURT ALMENDAREZ. Other systems otherwise negative. PHYSICAL EXAMINATION GENERAL: White male, in no distress. VITAL SIGNS: Blood pressure is 150/100, pulse is 103, respiratory rate 18, afebrile. HEENT: Normocephalic, atraumatic. Pupils are equal, round, and reactive. Sclerae nonicteric. Nasal passages patent. Posterior pharynx clear. Mucous membranes moist. NECK: Supple. Trachea midline. LUNGS: Reveal some minimal expiratory wheeze. Some crackles in the bases. CARDIAC: Regular rate and rhythm. Could not appreciate murmur, rub, or gallop. ABDOMEN: Nontender. Bowel sounds present. No hepatosplenomegaly. EXTREMITIES: Without clubbing, cyanosis, or edema. NEUROLOGIC: Awake, oriented x3. Cranial nerves grossly intact. Muscle strength symmetric bilaterally. DIAGNOSTIC STUDIES LABORATORY RESULTS: Personally reviewed as noted. Note that BNP was 1163. Procalcitonin was 4.97. White blood cell count was 9000, hematocrit was 29.6. IMPRESSION 1. Dyspnea secondary to congestive heart failure versus pneumonia. Elevated BNP is in favor of congestive heart failure. This could also represent an allergic reaction to his new medications. 2. Human immunodeficiency virus positive. 3. End-stage renal disease, on hemodialysis. 4. Abdominal pain and diarrhea. 5. Hyperlipidemia and high blood pressure. PLAN Agree with hemodialysis and volume removal. We will repeat chest x-ray to see if the infiltrates improve. ID has been consulted. We will defer antibiotic treatment for them. We will check ultrasound of the gallbladder given gallstones. Further records are pending. Follow up chest x-ray post-hemodialysis. Dictated by... Danial Leung M.D. KARRIE/lexus TD: 10/19/2016 05:40 JOB #: [id number] Unit #: [id number] #: [id number] Patient: KURT ALMENDAREZ CONSULTATION REPORT Page 1 of 1 X Danial Leung MD CONSULTATION REPORT
--- NOTE | ~2016-10-15 | CR63 ---
[facility] A Service of [facility] & [facility] RADIOLOGY TEXT RESULTS PATIENT: KURT ALMENDAREZ LOCATION: [facility] 313-01 : 57 UNIT #: [id number] AGE: [address]: Brandon Nagel MD SEX: M ORDER DR: [id number] [facility] [address] [place], [place] [address] [id number] I MR#: [id number] Acc #: [id number] NAME: KURT ALMENDAREZ : 1955 SEX: M STUDY DATE/TIME: 10/17/2016 7:36 UNIT: A U ROOM: [facility] STUDY DESCRIPTION: CR Chest 2 View Attending Physician: Brandon Nagel M.D. Ordering Physician: Danial Leung M.D. Primary Care Physician: No Primary Care Physician MEDICAL IMAGING REPORT This report is preliminary unless electronic signature is present EXAM PA and lateral chest. HISTORY End-stage renal disease, shortness of breath with new HIV meds beginning on 10/16. TECHNIQUE PA and lateral views are obtained. FINDINGS Cardiac size is stable. Lungs show evidence of basilar fibrosis. No acute infiltrates are seen. CONCLUSION Basilar fibrosis. No acute process identified. Dictated by... Hari Jauregui M.D. THIS IS AN ELECTRONICALLY VERIFIED REPORT Hari Jauregui M.D. at 10/18/2016 3:21 PM EDGAR/darwin TD: 10/17/2016 11:21 JOB #: [id number] MEDICAL IMAGING REPORT Page 1 of 1 COPY
--- NOTE | ~2016-10-15 | CR72 ---
[facility] A Service of [facility] & [facility] RADIOLOGY TEXT RESULTS PATIENT: KURT ALMENDAREZ LOCATION: [facility] 313-01 : 57 UNIT #: [id number] AGE: [address]: Brandon Nagel MD SEX: M ORDER DR: [id number] [facility] [address] [facility]. [place], [place] [address] [id number] I MR#: [id number] Acc #: [id number] NAME: KURT ALMENDAREZ : 1955 SEX: M STUDY DATE/TIME: 10/16/2016 00:24 UNIT: A U ROOM: [facility] STUDY DESCRIPTION: CR Chest Single View Portable Attending Physician: Brandon Nagel M.D. Ordering Physician: Jennifer Daigle M.D. Primary Care Physician: No Primary Care Physician MEDICAL IMAGING REPORT This report is preliminary unless electronic signature is present EXAM Portable chest 10/16 at 0024 hours. INDICATIONS Shortness of air for 2 days. FINDINGS AP portable chest compared with 09/10/16. Vascular stent noted left upper extremity. Cardiomegaly is stable. Bilateral small effusions are present. Interstitial opacities probably reflect mild edema. No pneumothorax. IMPRESSION Stable cardiomegaly with trace bilateral effusions. Interstitial infiltrates suggest mild edema. Dictated by... Sancho Lundberg Jr., M.D. THIS IS AN ELECTRONICALLY VERIFIED REPORT Sancho Lundberg Jr., M.D. at 10/16/2016 9:21 PM DOM/clayton TD: 10/16/2016 12:05 JOB #: [id number] MEDICAL IMAGING REPORT Page 1 of 1 COPY
--- NOTE | ~2016-10-15 | CO ---
Unit #: [id number] #: [id number] Patient: KURT LAMENDAREZ [id number] [address] [address] [id number] I MR#: [id number] NAME: KURT ALMENDAREZ ROOM: 313 Age: 61 Sex: M Admission Date: 10/16/2016 : 1955 Attending Physician: Brandon Nagel M.D. Primary Care Physician: Primary Care Physician No Consultation Date: 10/16/2016 CONSULTATION REPORT REASON FOR CONSULTATION Shortness of breath and the patient with HIV disease. HISTORY OF PRESENT ILLNESS This is a 61-year-old gentleman, who is generally taken care of at [facility] in [facility]. He has a history of HIV disease and is on HAART therapy. His last viral load is undetectable, and CD4 count is unknown. He also has a history of end-stage kidney disease, on hemodialysis, and was admitted with what appears to be shortness of breath. He also had some wheezing. He told me that his HIV medications were changed recently to a new regimen as listed below. Regimen was changed because of muscle cramps. After taking his medication, he felt short of breath with some wheezing which is subsequently improved. He also had increase in loose stools, but never had any fever, productive sputum, chest pain, mental status changes, or documented hypoxia. His chest x-ray showed basilar infiltrates. He was not febrile and looked fine. He was started on vancomycin and Zosyn. An ID was consulted for further evaluation. At the present time, the patient is fine. He sitting up in the bed. He is not on any oxygen. Does not appear to be in any distress and according to him, his shortness of breath has improved. He is going for hemodialysis at this time. PAST MEDICAL HISTORY HIV disease, current status unclear; but viral load was undetectable. His CD4 count is not known. The patient is not on any MAC or PCP prophylaxis indicating the CD4 count is above 200. He was recently hospitalized with similar symptoms, but it proved to be due to congestive heart failure at that time due to fluid overload. He also has history of hypertension, hyperlipidemia, polycystic kidney disease leading to end-stage renal failure, on hemodialysis. ALLERGIES None. CURRENT MEDICATIONS At home include albuterol, atenolol, Lipitor, capsaicin, vitamin D, Sensipar, darunavir, ritonavir, dolutegravir, hydralazine, Atarax, ibuprofen, Claritin, rilpivirine, all the HIV medications. DICTATION ENDS HERE Please note: This report has been placed on the patient's electronic Unit #: [id number] #: [id number] Patient: KURT ALMENDAREZ medical record in an incomplete status following multiple physician notifications for a completion without a response or resolution. Dictated by... Olimpia Taylor/lexus TD: 10/16/2016 23:56 JOB #: [id number] CONSULTATION REPORT Page 1 of 1 X Yung Bennett MD X CONSULTATION REPORT
[~2016-10-15 22:01] MED LIST: ALBUTEROL MININEB INH; ARTHRITIS PAI42.5 GM TOP; ATENOLOL PO; ATORVASTATIN CA10 MG PO; CLARITIN10 M3 PO; D-20002000 UNIT PO; DIALYSIS PO; HYDRALAZINE HCL50 MG PO; HYDROXYZINE HCL10 MG PO; JOCK ITCH15 G1 TOP; LAMIVUDINE PO; LIDOCAINE-PRILO30 G1 TOP; MULTIVIT PO; NEPHROCAPS QT1 EACH PO; PATIENT'S PHARMACY; RENVELA800 MG PO; SENSIPAR30 MG PO; SOD BICARBONATE PO; SUSTIVA PO; ZIAGEN300 M1 PO; [UNRECOGNIZED DRUG - OTHER] PO
[2016-10-16 00:54] LABS: BASOPHIL# 0.1 X10e3 (0-0.3); BASOPHIL% 0.6 % (0-2.5); EOSINOPHIL% 0.5 % (0.0-7.0); HEMATOCRIT 29.6 % (38.0-50.0); HEMOGLOBIN 9.7 gm/dL (13.0-16.0); LYMPHOCYTE# 1.2 X10e3 (1.0-3.5); LYMPHOCYTE% 13.1 % (17.0-45.0); MEAN CELL VOLUME 101.8 FL (83-96); MEAN CORPUSCULAR HEMOGLOBIN 33.4 PG (28-34); MEAN CORPUSCULAR HGB CONC 32.8 g/dL (30-36); MEAN PLATELET VOLUME 8.2 FL (6.5-11.5); MONOCYTE% 11.4 % (3.0-12.0); NEUTROPHIL# 6.7 X10e3 (1.5-7.1); NEUTROPHIL% 74.4 % (40-75); PLATELET COUNT 265 X10e3 (140-420); RED BLOOD COUNT 2.91 X10e (3.90-5.60); RED CELL DISTRIBUTION WIDTH 14.7 % (11.0-15.5)
[2016-10-16 00:55] LABS: DIFF IND NO
[2016-10-16 01:22] LABS: ALBUMIN SERUM 3.6 g/dL (3.5-5.0); BILIRUBIN, DIRECT 0.1 mg/dL (0.0-0.2); BILIRUBIN,INDIRECT 0.5 mg/dL (0.0-0.9); BILIRUBIN,TOTAL 0.6 mg/dL (0.2-2.0); BUN/CREATININE RATIO 4.26; CALCIUM SERUM 8.5 mg/dL (8.4-10.2); CREATININE SERUM 6.1 mg/dL (0.6-1.4); GLOM FILT RATE Estimated 10.6 mL/min (>60); POTASSIUM 3.6 mmol/L (3.5-5.1); PROTEIN TOTAL SERUM 8.4 g/dL (6.0-8.3)
[2016-10-16] MEDS ORDERED: BENTYL10 MG PO (02:22)
[2016-10-16] MEDS ORDERED: TIVICAY50 MG PO (02:22)
[2016-10-16] MEDS ORDERED: PREZISTA800 MG PO (02:22)
[2016-10-16] MEDS ORDERED: EDURANT25 MG PO ×2 (02:23→02:24)
[2016-10-16] MEDS ORDERED: MOTRIN400 M1 PO (02:23)
[2016-10-16] MEDS ORDERED: RENVELA800 MG PO (02:25)
[2016-10-16] MEDS ORDERED: NORVIR100 M1 PO (02:25)
[2016-10-16] MEDS ORDERED: ARTHRITIS PAI42.5 GM TOP (02:28)
[2016-10-16 05:56] LABS: BASOPHIL# 0.1 X10e3 (0-0.3); BASOPHIL% 0.9 % (0-2.5); EOSINOPHIL% 0.5 % (0.0-7.0); HEMATOCRIT 24.6 % (38.0-50.0); HEMOGLOBIN 8.3 gm/dL (13.0-16.0); LYMPHOCYTE# 1.3 X10e3 (1.0-3.5); LYMPHOCYTE% 15.9 % (17.0-45.0); MEAN CELL VOLUME 100.5 FL (83-96); MEAN CORPUSCULAR HEMOGLOBIN 33.9 PG (28-34); MEAN CORPUSCULAR HGB CONC 33.8 g/dL (30-36); MEAN PLATELET VOLUME 7.9 FL (6.5-11.5); MONOCYTE# 1.1 X10e3 (0-1.0); MONOCYTE% 13.8 % (3.0-12.0); NEUTROPHIL# 5.5 X10e3 (1.5-7.1); NEUTROPHIL% 68.9 % (40-75); PLATELET COUNT 218 X10e3 (140-420); RED BLOOD COUNT 2.44 X10e (3.90-5.60)
[2016-10-16 06:04] LABS: DIFF IND NO
[2016-10-16 06:54] LABS: PROCALCITONIN 4.97 NG/ML
[2016-10-16 07:25] LABS: BUN/CREATININE RATIO 4.09; CREATININE SERUM 6.6 mg/dL (0.6-1.4); GLOM FILT RATE Estimated 9.6 mL/min (>60); POTASSIUM 3.6 mmol/L (3.5-5.1)
[2016-10-17 05:46] LABS: HEMATOCRIT 25.2 % (38.0-50.0); HEMOGLOBIN 8.2 gm/dL (13.0-16.0); MEAN CELL VOLUME 102.1 FL (83-96); MEAN CORPUSCULAR HEMOGLOBIN 33.3 PG (28-34); MEAN CORPUSCULAR HGB CONC 32.6 g/dL (30-36); RED BLOOD COUNT 2.47 X10e (3.90-5.60)
[2016-10-17 06:36] LABS: BUN/CREATININE RATIO 3.5; CREATININE SERUM 5.7 mg/dL (0.6-1.4); GLOM FILT RATE Estimated 11.5 mL/min (>60); POTASSIUM 3.5 mmol/L (3.5-5.1)
[2016-10-18 03:23] LABS: HEMATOCRIT 26.3 % (38.0-50.0); HEMOGLOBIN 8.6 gm/dL (13.0-16.0); MEAN CELL VOLUME 100.3 FL (83-96); MEAN CORPUSCULAR HGB CONC 32.9 g/dL (30-36); MEAN PLATELET VOLUME 7.8 FL (6.5-11.5); RED BLOOD COUNT 2.62 X10e (3.90-5.60); RED CELL DISTRIBUTION WIDTH 14.8 % (11.0-15.5); WHITE BLOOD COUNT 7.7 X10e3 (4.0-10.5)
[2016-10-18 03:48] LABS: BUN/CREATININE RATIO 4.04; CALCIUM SERUM 8.1 mg/dL (8.4-10.2); CREATININE SERUM 4.2 mg/dL (0.6-1.4); GLOM FILT RATE Estimated 16.7 mL/min (>60); POTASSIUM 3.8 mmol/L (3.5-5.1)
[2016-10-18 05:15] LABS: CD4 % (PNL) 37 % (30-61); HIV1 LOG COPIES/ML <1.30 (<1.30); HIV1COPIES/ML <20 (<20)
[2016-10-18] MEDS ORDERED: PROCRIT10000 UNIT (14:00)
[2016-10-18] MEDS ORDERED: DIGESTIVE PROB250 MG PO (14:02)
[2016-10-21 00:14] LABS: CALCIUM (PTHINTACT) 9.2 mg/dL (8.6-10.3)
== END 2016-10-18 14:51 | disposition home or self-care (01) | DRG 640 ==
LOC: CED 22:01 → CEDOF 10-16 03:00 → C3A PCU 10-16 03:00 → CEDOF 10-16 03:22 → CED 10-16 03:22 → CEDOF 10-16 06:42 → C3A PCU 10-16 08:28
PROVIDERS: Emergency Medicine; Family Medicine; Internal Medicine; Internal Medicine Nephrology
PROC: 5A1D60Z (ICD-10-PCS; principal; 2016-10-16)
DX: E87.70 Fluid overload, unspecified (principal); N18.6 End stage renal disease; J90 Pleural effusion, not elsewhere classified; I12.0 Hypertensive chronic kidney disease with stage 5 chronic kidney disease or end stage renal disease; Q61.3 Polycystic kidney, unspecified; R06.00 Dyspnea, unspecified; T50.995A Adverse effect of other drugs, medicaments and biological substances, initial encounter; Z99.2 Dependence on renal dialysis; Z21 Asymptomatic human immunodeficiency virus [HIV] infection status; E78.5 Hyperlipidemia, unspecified; K80.80 Other cholelithiasis without obstruction; D63.1 Anemia in chronic kidney disease; R91.8 Other nonspecific abnormal finding of lung field
CPT/HCPCS: 36415; 71010; 71020; 74176; 76705; 80048; 80076; 80202; 82150; 82308; 82310; 82550; 83605; 83615; 83690; 83880; 83970; 84100; 84146; 84484; 85025; 85027; 86361; 87040; 87536; 93005; 94640; 94760; 96365; 96366; 96367; 99285; C9113; J0885; J2270; J2405; J2543; J3260; J3370